=== PATIENT | female | born 1930 | race Caucasian/White ===

== ENCOUNTER 2017-04-16 13:01 | Inpatient (IN) | payer OTHER, MEDICARE ==
[~2017-04-16] VITALS: Ht 167.6 cm; Wt 79.9 kg
[~2017-04-16 13:01] MED LIST: ALPRAZOLAM0.25 M2 PO; ASCORBIC ACID500 M3 PO; ASPIR 8181 M1 PO; ATENOLOL100 MG PO; BACTRIM,SEPT1 TABLET PO; BENICAR40 MG PO; CALCITRIOL0.25 MCG PO; CARVEDILOL3.125 MG PO; CIPRO500 MG PO; CLONIDINE HCL0.2 MG PO; COREG12.5 M1 PO; LASIX20 MG PO; LOPRESSOR100 M1 PO; LOVASTATIN40 MG PO; MULTI-DAY VITA1 EACH PO; NORVASC10 MG PO; ONE-A-DAY ESSE1 EAC1 PO; PLAVIX75 MG PO; ROCALTROL0.25 MCG PO; SENNA S TABLET1 EACH PO; TYLENOL EXTRA500 MG PO; VITAMIN C500 M1 PO
[2017-04-16 15:18] LABS: EOSINOPHIL (%) 1.6 % (0-5); EOSINOPHIL COUNT 0.1 K/uL (0-0.3); HEMATOCRIT 33.3 % (36.0-46.0); IMMATURE GRANULOCYTE (%) 0.6 % (0.0-0.7); INSTRUMENT ABS NEUTROPHIL CT 5.2 K/uL; LYMPHOCYTE COUNT 0.6 K/uL (1.0-2.8); MCH 27.7 PG (29.0-34.0); MCHC 31.5 G/DL (30.0-36.0); MCV 87.9 FL (83-99); MONOCYTE (%) 13.6 % (3-12); MONOCYTE COUNT 0.9 K/uL (0-0.8); NEUTROPHIL (%) 74.6 % (45-76); NEUTROPHIL COUNT 5.2 K/uL (1.8-6.4); RBC DIS.WIDTH-CV 14.2 % (11.8-14.6); RBC DIS.WIDTH-SD 46.1 % (39-53); RED BLOOD COUNT 3.79 M/uL (3.80-5.20); WHITE BLOOD COUNT 6.9 K/uL (4.1-10.2)
[2017-04-16 15:27] LABS: PLATELET COUNT 108 K/uL (156-360)
[2017-04-16 15:29] LABS: CHLORIDE 91 mEq/L (99-109); POTASSIUM 4.3 mEq/L (3.7-5.4); SODIUM 129 mEq/L (136-147)
[2017-04-16 15:32] LABS: GLUCOSE 121 mg/dL (70-99)
[2017-04-16 15:33] LABS: ANION GAP 10 MEQ/L (2-14)
[2017-04-16 15:34] LABS: TOTAL BILIRUBIN 0.4 mg/dL (0.0-1.0)
[2017-04-16 15:35] LABS: ALKALINE PHOSPHATASE 117 IU/L (3-129)
[2017-04-16 15:36] LABS: GFR ESTIMATE (CALCULATED) 14 mL/min/
[2017-04-16 15:37] LABS: UREA NITROGEN (BUN) 70 mg/dL (9-23)
[2017-04-16 15:39] LABS: CREATINE KINASE 40 IU/L (1-294); TOTAL CK 40 IU/L (1-294); TROP-I INTERPRETATION NEGATIVE; TROPONIN-I < 0.01 ng/mL (0.0-0.30)
[2017-04-16 15:40] LABS: CK-MB 0.4 ng/mL (0.0-4.9)
[2017-04-16 15:54] LABS: ADD MIUA? YES; BILIRUBIN NEGATIVE; BLOOD NEGATIVE; COLOR YELLOW ((YELLOW)); GLUCOSE (STRIP) NEGATIVE; KETONES NEGATIVE; LEUKOCYTES SMALL; NITRITE NEGATIVE; PROTEIN (STRIP) 30; SPECIFIC GRAVITY 1.008 (1.000-1.030); UROBILINOGEN 0.2 MG/DL (0.2-1.0)
[2017-04-16 15:56] LABS: BACTERIA NONE SEEN /HPF; EPITHELIAL CELLS RARE /HPF; MUCUS NONE SEEN /LPF; UCUL ADDED? NO
[2017-04-16] MEDS ORDERED: CATAPRES0.1 MG PO (18:30)
[2017-04-16] MEDS ORDERED: CIPRO500 MG PO (18:30)
[2017-04-16] MEDS ORDERED: APRESOLINE25 MG PO (18:33)
[2017-04-16] MEDS ORDERED: PROBIOTIC1 EAC1 PO (18:34)
[2017-04-16] MEDS ORDERED: PROZAC20 MG PO (18:34)
[2017-04-16] MEDS ORDERED: CRANBERRY500 M2 PO (18:34)
[2017-04-16 20:47] VITALS: BP 174/74
[2017-04-16 23:15] LABS: TROP-I INTERPRETATION NEGATIVE; TROPONIN-I 0.01 ng/mL (0.0-0.30)
[2017-04-16 23:49] VITALS: BP 149/66
[2017-04-17] VITALS (8 sets, daily range): BP systolic 140–198; BP diastolic 57–96
[2017-04-17 06:48] LABS: HEMATOCRIT 30.9 % (36.0-46.0); MCH 28.3 PG (29.0-34.0); MCV 88.3 FL (83-99); MEAN PLAT.VOLUME 10.4 uM^3 (9.5-12.4); PLATELET COUNT 107 K/uL (156-360); RBC DIS.WIDTH-CV 14.3 % (11.8-14.6); RBC DIS.WIDTH-SD 46.5 % (39-53); WHITE BLOOD COUNT 5.5 K/uL (4.1-10.2)
[2017-04-17 07:15] LABS: TROP-I INTERPRETATION NEGATIVE; TROPONIN-I 0.02 ng/mL (0.0-0.30)
[2017-04-17 07:16] LABS: ALKALINE PHOSPHATASE 83 IU/L (3-129); ANION GAP 7 MEQ/L (2-14); CHLORIDE 97 MEQ/L (99-109); GFR ESTIMATE (CALCULATED) 17 mL/min/; GLUCOSE 95 mg/dL (70-99); SAMPLE HEMOLYSIS CHECK 0; SAMPLE ICTERIC CHECK 0; SAMPLE LIPEMIA CHECK 0; SODIUM 135 MEQ/L (136-147); TOTAL BILIRUBIN 0.4 MG/DL (0.0-1.0); UREA NITROGEN (BUN) 56 mg/dL (9-23)
[2017-04-18 00:02] VITALS: BP 169/72
[2017-04-18 04:04] VITALS: BP 148/67
[2017-04-18 08:19] VITALS: BP 153/70
[2017-04-18 09:34] LABS: ANION GAP 10 MEQ/L (2-14); CHLORIDE 96 MEQ/L (99-109); GFR ESTIMATE (CALCULATED) 19 mL/min/; GLUCOSE 90 mg/dL (70-99); POTASSIUM 3.9 MEQ/L (3.7-5.4); SAMPLE HEMOLYSIS CHECK 0; SAMPLE ICTERIC CHECK 0; SAMPLE LIPEMIA CHECK 0; SODIUM 135 MEQ/L (136-147); UREA NITROGEN (BUN) 51 mg/dL (9-23)
[2017-04-18 12:55] VITALS: BP 162/77
[2017-04-18 19:28] VITALS: BP 153/71
[2017-04-19] VITALS: BP 155/73
[2017-04-19 03:31] VITALS: BP 154/94
[2017-04-19 08:30] VITALS: BP 203/86
[2017-04-19 08:36] LABS: POINT-OF-CARE METER ID UU13113717
[2017-04-19 08:38] VITALS: BP 138/62
[2017-04-19 08:44] LABS: ANION GAP 8 MEQ/L (2-14); CHLORIDE 104 MEQ/L (99-109); GFR ESTIMATE (CALCULATED) 21 mL/min/; GLUCOSE 102 mg/dL (70-99); POTASSIUM 3.7 MEQ/L (3.7-5.4); SAMPLE HEMOLYSIS CHECK 0; SAMPLE ICTERIC CHECK 0; SAMPLE LIPEMIA CHECK 0; SODIUM 140 MEQ/L (136-147); UREA NITROGEN (BUN) 50 mg/dL (9-23)
== END 2017-04-19 13:22 | disposition home or self-care (01) | DRG 683 ==
LOC: EME 13:01 → 5SOUTH 19:16 → EDOF 19:16 → ENRESERV 19:19 → 5SOUTH 20:23
PROVIDERS: Emergency Medicine; Internal Medicine
DX: N17.9 Acute kidney failure, unspecified (principal); N18.4 Chronic kidney disease, stage 4 (severe); E86.0 Dehydration; E87.1 Hypo-osmolality and hyponatremia; I15.1 Hypertension secondary to other renal disorders; I25.10 Atherosclerotic heart disease of native coronary artery without angina pectoris; Z95.5 Presence of coronary angioplasty implant and graft; Z96.653 Presence of artificial knee joint, bilateral; R41.0 Disorientation, unspecified; I35.0 Nonrheumatic aortic (valve) stenosis; N30.00 Acute cystitis without hematuria; I25.2 Old myocardial infarction; K21.9 Gastro-esophageal reflux disease without esophagitis; Z95.2 Presence of prosthetic heart valve; E78.5 Hyperlipidemia, unspecified
CPT/HCPCS: 71010; 78582; 80048; 80053; 81003; 82550; 82553; 82607; 82728; 82948; 83880; 83930; 83935; 84300; 84484; 85025; 85027; 85379; 93005; 93306; 93970; 94799; 99281; 99284; A9540; A9567; J1644; J7030

== ENCOUNTER 2017-04-23 13:30 | Emergency (ER) | payer OTHER, MEDICARE ==
[~2017-04-23] VITALS: Ht 167.6 cm; Wt 80.6 kg
[~2017-04-23 13:30] MED LIST changes: +APRESOLINE25 MG PO; +CATAPRES0.1 MG PO; +CRANBERRY500 M2 PO; +PROBIOTIC1 EAC1 PO; +PROZAC20 MG PO
[2017-04-23 14:59] LABS: EOSINOPHIL (%) 0.7 % (0-5); EOSINOPHIL COUNT 0.1 K/uL (0-0.3); HEMATOCRIT 34.4 % (36.0-46.0); IMMATURE GRANULOCYTE (%) 0.7 % (0.0-0.7); IMMATURE GRANULOCYTE COUNT 0.1 K/uL; INSTRUMENT ABS NEUTROPHIL CT 6.7 K/uL; LYMPHOCYTE COUNT 0.8 K/uL (1.0-2.8); MCH 27.5 PG (29.0-34.0); MCHC 31.7 G/DL (30.0-36.0); MCV 86.9 FL (83-99); MEAN PLAT.VOLUME 9.9 uM^3 (9.5-12.4); MONOCYTE (%) 6.8 % (3-12); MONOCYTE COUNT 0.6 K/uL (0-0.8); NEUTROPHIL (%) 82.1 % (45-76); NEUTROPHIL COUNT 6.7 K/uL (1.8-6.4); RBC DIS.WIDTH-CV 14.2 % (11.8-14.6); RBC DIS.WIDTH-SD 45.7 % (39-53); RED BLOOD COUNT 3.96 M/uL (3.80-5.20); WHITE BLOOD COUNT 8.1 K/uL (4.1-10.2)
[2017-04-23 15:06] LABS: ADD MIUA? YES; BILIRUBIN NEGATIVE; BLOOD NEGATIVE; COLOR YELLOW ((YELLOW)); GLUCOSE (STRIP) NEGATIVE; KETONES NEGATIVE; LEUKOCYTES SMALL; NITRITE NEGATIVE; PROTEIN (STRIP) 30; SPECIFIC GRAVITY 1.013 (1.000-1.030); UROBILINOGEN 0.2 MG/DL (0.2-1.0)
[2017-04-23 15:06] LABS: CHLORIDE 102 mEq/L (99-109); POTASSIUM 4.5 mEq/L (3.7-5.4); SODIUM 141 mEq/L (136-147)
[2017-04-23 15:07] LABS: GLUCOSE 101 mg/dL (70-99)
[2017-04-23 15:08] LABS: BACTERIA RARE /HPF; EPITHELIAL CELLS RARE /HPF; MUCUS NONE SEEN /LPF; RED BLOOD CELLS 0-5 /HPF (0-5)
[2017-04-23 15:09] LABS: ANION GAP 12 MEQ/L (2-14)
[2017-04-23 15:11] LABS: GFR ESTIMATE (CALCULATED) 24 mL/min/
[2017-04-23 15:12] LABS: UREA NITROGEN (BUN) 38 mg/dL (9-23)
[2017-04-23 15:13] LABS: PLATELET COUNT 266 K/uL (156-360)
[2017-04-23 16:59] VITALS: BP 162/61
== END 2017-04-23 17:00 | disposition home or self-care (01) ==
LOC: EME 13:30
PROVIDERS: Emergency Medicine
DX: E86.0 Dehydration (principal); I12.9 Hypertensive chronic kidney disease with stage 1 through stage 4 chronic kidney disease, or unspecified chronic kidney disease; N18.9 Chronic kidney disease, unspecified; E78.5 Hyperlipidemia, unspecified; I25.2 Old myocardial infarction; F41.9 Anxiety disorder, unspecified; Z85.3 Personal history of malignant neoplasm of breast; Z95.2 Presence of prosthetic heart valve; Z96.653 Presence of artificial knee joint, bilateral
CPT/HCPCS: 71020; 80048; 81003; 83605; 85025; 87040; 87086; 99281; 99284; J7040

== ENCOUNTER 2017-07-18 21:09 | Inpatient (IN) | payer OTHER, MEDICARE ==
[~2017-07-18] VITALS: Ht 167.6 cm; Wt 79.0 kg
[~2017-07-18 21:09] MED LIST changes: +ELIQUIS2.5 MG PO
[2017-07-18 21:55] LABS: MCH 27.9 PG (29.0-34.0); MCHC 32.9 G/DL (30.0-36.0); MCV 84.6 FL (83-99); MEAN PLAT.VOLUME 9.2 uM^3 (9.5-12.4); PLATELET COUNT 273 K/uL (156-360); RBC DIS.WIDTH-SD 40.2 % (39-53); RED BLOOD COUNT 4.02 M/uL (3.80-5.20); WHITE BLOOD COUNT 13.6 K/uL (4.1-10.2)
[2017-07-18 22:02] LABS: INTER. NORMALIZED RATIO 1.2; PROTHROMBIN TIME 13.5 SEC (10.2-12.9)
[2017-07-18 22:04] LABS: PTT 31.2 SEC (25-37)
[2017-07-18 22:08] LABS: CHLORIDE 96 mEq/L (99-109); POTASSIUM 3.9 mEq/L (3.7-5.4); SODIUM 130 mEq/L (136-147)
[2017-07-18 22:09] LABS: GLUCOSE 122 mg/dL (70-99)
[2017-07-18 22:11] LABS: ANION GAP 11 MEQ/L (2-14)
[2017-07-18 22:13] LABS: GFR ESTIMATE (CALCULATED) 25 mL/min/
[2017-07-18 22:14] LABS: TROP-I INTERPRETATION INDETERMINATE; UREA NITROGEN (BUN) 36 mg/dL (9-23)
[2017-07-18] MEDS ORDERED: ATIVAN0.5 MG PO (22:52)
[2017-07-18 23:26] LABS: BASE EXCESS -0.3 mEq/L (-3 to +3); CARBOXY HGB 1.1 % (0-5); COMMENTS - BLOOD GASES C+A+; DEVICE NIV; FI02 40 %; METHEMOGLOBIN 1.1 % (0-1.5); MODE SPONT; PCO2 37 mm Hg (35-45); PEEP 5 CM/H20; PO2 132 mm Hg (80-100); PRES. SUPPORT 10 CM/H2O; SITE RR; TOTAL RESP RATE 31 resp/min; pH 7.42 (7.35-7.45)
[2017-07-19] VITALS (20 sets, daily range): BP systolic 90–161; BP diastolic 54–93
[2017-07-19 06:50] LABS: METH RESISTANT S AUREUS PCR NEGATIVE (NEGATIVE)
[2017-07-19 06:53] LABS: PROBE CHECK PASS; SPECIMEN PROCESSING CONTROL PASS
[2017-07-19 23:37] LABS: INTER. NORMALIZED RATIO 1.2
[2017-07-19 23:40] LABS: PTT 65.3 SEC (25-37)
[2017-07-19 23:42] LABS: CHLORIDE 96 mEq/L (99-109); POTASSIUM 4.3 mEq/L (3.7-5.4); SODIUM 131 mEq/L (136-147)
[2017-07-19 23:43] LABS: GLUCOSE 111 mg/dL (70-99)
[2017-07-19 23:45] LABS: ANION GAP 15 MEQ/L (2-14)
[2017-07-19 23:47] LABS: GFR ESTIMATE (CALCULATED) 17 mL/min/
[2017-07-19 23:48] LABS: UREA NITROGEN (BUN) 51 mg/dL (9-23)
[2017-07-19 23:51] LABS: TROP-I INTERPRETATION INDETERMINATE
[2017-07-20] VITALS (24 sets, daily range): BP systolic 100–156; BP diastolic 65–98
[2017-07-20 05:27] LABS: HEMATOCRIT 32.7 % (36.0-46.0); MCH 28.3 PG (29.0-34.0); MCHC 33.3 G/DL (30.0-36.0); MCV 84.9 FL (83-99); MEAN PLAT.VOLUME 9.6 uM^3 (9.5-12.4); PLATELET COUNT 287 K/uL (156-360); RBC DIS.WIDTH-CV 13.6 % (11.8-14.6); RBC DIS.WIDTH-SD 42.4 % (39-53); RED BLOOD COUNT 3.85 M/uL (3.80-5.20); WHITE BLOOD COUNT 18.5 K/uL (4.1-10.2)
[2017-07-20 06:23] LABS: ANION GAP 16 MEQ/L (2-14); CHLORIDE 95 MEQ/L (99-109); GFR ESTIMATE (CALCULATED) 17 mL/min/; GLUCOSE 105 mg/dL (70-99); POTASSIUM 4.2 MEQ/L (3.7-5.4); SAMPLE HEMOLYSIS CHECK 0; SAMPLE ICTERIC CHECK 0; SAMPLE LIPEMIA CHECK 0; SODIUM 133 MEQ/L (136-147); UREA NITROGEN (BUN) 55 mg/dL (9-23)
[2017-07-20 17:47] LABS: INTER. NORMALIZED RATIO 1.2; PROTHROMBIN TIME 13.6 SEC (10.2-12.9)
[2017-07-20 18:28] LABS: ADD MIUA? YES; BILIRUBIN NEGATIVE; BLOOD NEGATIVE; COLOR YELLOW ((YELLOW)); GLUCOSE (STRIP) NEGATIVE; KETONES NEGATIVE; LEUKOCYTES SMALL; NITRITE NEGATIVE; PROTEIN (STRIP) NEGATIVE; SPECIFIC GRAVITY 1.009 (1.000-1.030); UROBILINOGEN 0.2 MG/DL (0.2-1.0)
[2017-07-20 18:36] LABS: BACTERIA RARE /HPF; EPITHELIAL CELLS RARE /HPF; HYALINE CASTS 0-5 /LPF; MUCUS TRACE /LPF; RED BLOOD CELLS 0-5 /HPF (0-5); UCUL ADDED? YES; UNCLASSIFIED CASTS 0-5 /LPF; UNCLASSIFIED CRYSTALS 2+ /HPF
[2017-07-21] VITALS (24 sets, daily range): BP systolic 80–150; BP diastolic 55–96
[2017-07-21 07:51] LABS: ANION GAP 15 MEQ/L (2-14); CHLORIDE 94 MEQ/L (99-109); GFR ESTIMATE (CALCULATED) 17 mL/min/; GLUCOSE 79 mg/dL (70-99); SAMPLE HEMOLYSIS CHECK 1; SAMPLE ICTERIC CHECK 0; SAMPLE LIPEMIA CHECK 0; SODIUM 132 MEQ/L (136-147); UREA NITROGEN (BUN) 61 mg/dL (9-23)
[2017-07-21 08:16] LABS: BASOPHIL COUNT 0.1 K/uL (0-0.1); EOSINOPHIL (%) 0 % (0-5); IMMATURE GRANULOCYTE (%) 1.3 % (0.0-0.7); IMMATURE GRANULOCYTE COUNT 0.3 K/uL; INSTRUMENT ABS NEUTROPHIL CT 18.4 K/uL; LYMPHOCYTE COUNT 0.5 K/uL (1.0-2.8); MCH 29.2 PG (29.0-34.0); MCHC 34.2 G/DL (30.0-36.0); MCV 85.4 FL (83-99); MEAN PLAT.VOLUME 10.5 uM^3 (9.5-12.4); MONOCYTE (%) 5.7 % (3-12); MONOCYTE COUNT 1.2 K/uL (0-0.8); NEUTROPHIL (%) 90.5 % (45-76); NEUTROPHIL COUNT 18.4 K/uL (1.8-6.4); PLATELET COUNT 296 K/uL (156-360); RBC DIS.WIDTH-CV 13.7 % (11.8-14.6); RBC DIS.WIDTH-SD 43.1 % (39-53); RED BLOOD COUNT 3.63 M/uL (3.80-5.20); WHITE BLOOD COUNT 20.3 K/uL (4.1-10.2)
[2017-07-21 08:18] LABS: MAGNESIUM 2.2 mg/dl (1.3-2.7)
[2017-07-22] VITALS (23 sets, daily range): BP systolic 0–154; BP diastolic 0–88
[2017-07-22 05:27] LABS: BASE EXCESS 1.7 mEq/L (-3 to +3); BICARBONATE 25.7 mEq/L (22-26); CARBOXY HGB 1.2 % (0-5); METHEMOGLOBIN 2.4 % (0-1.5); PCO2 37 mm Hg (35-45); PO2 133 mm Hg (80-100); pH 7.45 (7.35-7.45)
[2017-07-22 05:28] LABS: COMMENTS - BLOOD GASES C+; DEVICE VENT; FI02 60 %; MECHANICAL RATE 18 resp/min; MODE A/C; PEEP 10 CM/H20; SITE RR; TIDAL VOLUME 450 ML; TOTAL RESP RATE 18 resp/min
[2017-07-22 06:17] LABS: EOSINOPHIL (%) 0.6 % (0-5); EOSINOPHIL COUNT 0.1 K/uL (0-0.3); HEMATOCRIT 29.2 % (36.0-46.0); IMMATURE GRANULOCYTE (%) 1.3 % (0.0-0.7); IMMATURE GRANULOCYTE COUNT 0.2 K/uL; INSTRUMENT ABS NEUTROPHIL CT 12.8 K/uL; LYMPHOCYTE COUNT 0.7 K/uL (1.0-2.8); MCHC 31.8 G/DL (30.0-36.0); MCV 84.6 FL (83-99); MEAN PLAT.VOLUME 9.9 uM^3 (9.5-12.4); MONOCYTE (%) 6.2 % (3-12); MONOCYTE COUNT 0.9 K/uL (0-0.8); NEUTROPHIL (%) 86.8 % (45-76); NEUTROPHIL COUNT 12.8 K/uL (1.8-6.4); PLATELET COUNT 294 K/uL (156-360); RBC DIS.WIDTH-CV 13.5 % (11.8-14.6); RBC DIS.WIDTH-SD 41.8 % (39-53); RED BLOOD COUNT 3.45 M/uL (3.80-5.20); WHITE BLOOD COUNT 14.7 K/uL (4.1-10.2)
[2017-07-22 06:50] LABS: ANION GAP 14 MEQ/L (2-14); CHLORIDE 95 MEQ/L (99-109); GFR ESTIMATE (CALCULATED) 19 mL/min/; GLUCOSE 94 mg/dL (70-99); MAGNESIUM 2.1 mg/dl (1.3-2.7); POTASSIUM 3.5 MEQ/L (3.7-5.4); SAMPLE HEMOLYSIS CHECK 0; SAMPLE ICTERIC CHECK 0; SAMPLE LIPEMIA CHECK 0; SODIUM 133 MEQ/L (136-147); UREA NITROGEN (BUN) 64 mg/dL (9-23)
[2017-07-22 06:51] LABS: VANCOMYCIN, TROUGH 19.5 MCG/ML (10-20)
[2017-07-22 07:04] LABS: URIC ACID 7.5 mg/dL (3.1-9.2)
[2017-07-22 13:40] LABS: INTER. NORMALIZED RATIO 1.1
[2017-07-22 13:42] LABS: PTT 64.7 SEC (25-37)
[2017-07-23] VITALS (24 sets, daily range): BP systolic 116–159; BP diastolic 53–80
[2017-07-23 05:25] LABS: EOSINOPHIL (%) 1.5 % (0-5); EOSINOPHIL COUNT 0.2 K/uL (0-0.3); HEMATOCRIT 27.2 % (36.0-46.0); IMMATURE GRANULOCYTE COUNT 0.1 K/uL; LYMPHOCYTE COUNT 0.7 K/uL (1.0-2.8); MCHC 31.3 G/DL (30.0-36.0); MCV 86.3 FL (83-99); MEAN PLAT.VOLUME 9.5 uM^3 (9.5-12.4); MONOCYTE (%) 6.1 % (3-12); MONOCYTE COUNT 0.7 K/uL (0-0.8); PLATELET COUNT 295 K/uL (156-360); RBC DIS.WIDTH-CV 13.8 % (11.8-14.6); RBC DIS.WIDTH-SD 43.4 % (39-53); RED BLOOD COUNT 3.15 M/uL (3.80-5.20); WHITE BLOOD COUNT 11.7 K/uL (4.1-10.2)
[2017-07-23 06:00] LABS: ANION GAP 11 MEQ/L (2-14); CHLORIDE 101 MEQ/L (99-109); GFR ESTIMATE (CALCULATED) 27 mL/min/; GLUCOSE 89 mg/dL (70-99); MAGNESIUM 2.1 mg/dl (1.3-2.7); POTASSIUM 3.7 MEQ/L (3.7-5.4); SAMPLE HEMOLYSIS CHECK 1; SAMPLE ICTERIC CHECK 0; SAMPLE LIPEMIA CHECK 0; SODIUM 139 MEQ/L (136-147); UREA NITROGEN (BUN) 52 mg/dL (9-23)
[2017-07-23 06:12] LABS: BASE EXCESS 3.8 mEq/L (-3 to +3); BICARBONATE 29.1 mEq/L (22-26); CARBOXY HGB 1.1 % (0-5); COMMENTS - BLOOD GASES C+A+; METHEMOGLOBIN 1.3 % (0-1.5); PCO2 47 mm Hg (35-45); PO2 95 mm Hg (80-100); SITE RR
[2017-07-23 06:13] LABS: DEVICE VENTILATOR; FI02 50 %; MODE SPONT; PEEP 10 CM/H20; PRES. SUPPORT 15 CM/H2O; TOTAL RESP RATE 16 resp/min
[2017-07-24] VITALS (24 sets, daily range): BP systolic 89–156; BP diastolic 55–93
[2017-07-24 05:19] LABS: EOSINOPHIL (%) 1.4 % (0-5); EOSINOPHIL COUNT 0.2 K/uL (0-0.3); IMMATURE GRANULOCYTE (%) 0.9 % (0.0-0.7); IMMATURE GRANULOCYTE COUNT 0.1 K/uL; LYMPHOCYTE COUNT 0.8 K/uL (1.0-2.8); MCH 27.5 PG (29.0-34.0); MCHC 31.5 G/DL (30.0-36.0); MCV 87.4 FL (83-99); MEAN PLAT.VOLUME 9.7 uM^3 (9.5-12.4); MONOCYTE (%) 7.6 % (3-12); MONOCYTE COUNT 0.8 K/uL (0-0.8); NEUTROPHIL (%) 82.6 % (45-76); PLATELET COUNT 294 K/uL (156-360); RBC DIS.WIDTH-CV 13.8 % (11.8-14.6); RBC DIS.WIDTH-SD 43.8 % (39-53); RED BLOOD COUNT 3.09 M/uL (3.80-5.20); WHITE BLOOD COUNT 10.9 K/uL (4.1-10.2)
[2017-07-24 05:58] LABS: ANION GAP 13 MEQ/L (2-14); CHLORIDE 104 MEQ/L (99-109); GFR ESTIMATE (CALCULATED) 30 mL/min/; GLUCOSE 84 mg/dL (70-99); MAGNESIUM 1.9 mg/dl (1.3-2.7); POTASSIUM 3.3 MEQ/L (3.7-5.4); SAMPLE HEMOLYSIS CHECK 0; SAMPLE ICTERIC CHECK 0; SAMPLE LIPEMIA CHECK 0; SODIUM 143 MEQ/L (136-147); UREA NITROGEN (BUN) 47 mg/dL (9-23)
[2017-07-25] VITALS (24 sets, daily range): BP systolic 117–164; BP diastolic 52–72
[2017-07-25 04:54] LABS: EOSINOPHIL (%) 1.3 % (0-5); EOSINOPHIL COUNT 0.2 K/uL (0-0.3); HEMATOCRIT 28.1 % (36.0-46.0); IMMATURE GRANULOCYTE (%) 1.6 % (0.0-0.7); IMMATURE GRANULOCYTE COUNT 0.2 K/uL; INSTRUMENT ABS NEUTROPHIL CT 9.7 K/uL; LYMPHOCYTE COUNT 0.9 K/uL (1.0-2.8); MCH 27.6 PG (29.0-34.0); MCHC 31.3 G/DL (30.0-36.0); MCV 88.1 FL (83-99); MEAN PLAT.VOLUME 8.9 uM^3 (9.5-12.4); MONOCYTE (%) 8.3 % (3-12); NEUTROPHIL COUNT 9.7 K/uL (1.8-6.4); PLATELET COUNT 283 K/uL (156-360); RBC DIS.WIDTH-CV 13.9 % (11.8-14.6); RBC DIS.WIDTH-SD 45.1 % (39-53); RED BLOOD COUNT 3.19 M/uL (3.80-5.20)
[2017-07-25 05:13] LABS: POTASSIUM 3.3 mEq/L (3.7-5.4); SODIUM 144 mEq/L (136-147)
[2017-07-25 05:14] LABS: MAGNESIUM 1.9 mg/dL (1.3-2.7)
[2017-07-25 05:15] LABS: CHLORIDE 107 mEq/L (99-109); GLUCOSE 100 mg/dL (70-99)
[2017-07-25 05:16] LABS: ANION GAP 11 MEQ/L (2-14)
[2017-07-25 05:19] LABS: GFR ESTIMATE (CALCULATED) 32 mL/min/
[2017-07-25 05:20] LABS: UREA NITROGEN (BUN) 43 mg/dL (9-23)
[2017-07-26] VITALS (24 sets, daily range): BP systolic 0–171; BP diastolic 0–94
[2017-07-26 05:42] LABS: BASE EXCESS 5.3 mEq/L (-3 to +3); CARBOXY HGB 1.1 % (0-5); METHEMOGLOBIN 1.5 % (0-1.5); pH 7.49 (7.35-7.45)
[2017-07-26 05:43] LABS: COMMENTS - BLOOD GASES A+C+; DEVICE VENT; FI02 30 %; MECHANICAL RATE 18 resp/min; MODE AC; PCO2 38 mm Hg (35-45); PEEP 10 CM/H20; PO2 74 mm Hg (80-100); SITE RR; TIDAL VOLUME 450 ML; TOTAL RESP RATE 18 resp/min
[2017-07-26 06:11] LABS: EOSINOPHIL (%) 2.1 % (0-5); EOSINOPHIL COUNT 0.3 K/uL (0-0.3); HEMATOCRIT 26.2 % (36.0-46.0); IMMATURE GRANULOCYTE (%) 3.6 % (0.0-0.7); IMMATURE GRANULOCYTE COUNT 0.4 K/uL; INSTRUMENT ABS NEUTROPHIL CT 8.9 K/uL; LYMPHOCYTE COUNT 1.4 K/uL (1.0-2.8); MCH 28.4 PG (29.0-34.0); MCHC 32.1 G/DL (30.0-36.0); MCV 88.5 FL (83-99); MEAN PLAT.VOLUME 9.4 uM^3 (9.5-12.4); MONOCYTE (%) 8.1 % (3-12); NEUTROPHIL (%) 74.2 % (45-76); NEUTROPHIL COUNT 8.9 K/uL (1.8-6.4); PLATELET COUNT 270 K/uL (156-360); RBC DIS.WIDTH-CV 14.1 % (11.8-14.6); RBC DIS.WIDTH-SD 45.7 % (39-53); RED BLOOD COUNT 2.96 M/uL (3.80-5.20)
[2017-07-26 07:20] LABS: ANION GAP 10 MEQ/L (2-14); CHLORIDE 110 MEQ/L (99-109); GFR ESTIMATE (CALCULATED) 35 mL/min/; GLUCOSE 101 mg/dL (70-99); MAGNESIUM 1.9 mg/dl (1.3-2.7); POTASSIUM 3.6 MEQ/L (3.7-5.4); SAMPLE HEMOLYSIS CHECK 0; SAMPLE ICTERIC CHECK 0; SAMPLE LIPEMIA CHECK 0; SODIUM 146 MEQ/L (136-147); UREA NITROGEN (BUN) 36 mg/dL (9-23)
[2017-07-27] VITALS (21 sets, daily range): BP systolic 134–183; BP diastolic 64–90
[2017-07-27 05:07] LABS: EOSINOPHIL (%) 1.8 % (0-5); EOSINOPHIL COUNT 0.2 K/uL (0-0.3); HEMATOCRIT 26.9 % (36.0-46.0); IMMATURE GRANULOCYTE (%) 3.2 % (0.0-0.7); IMMATURE GRANULOCYTE COUNT 0.4 K/uL; INSTRUMENT ABS NEUTROPHIL CT 9.7 K/uL; LYMPHOCYTE COUNT 1.6 K/uL (1.0-2.8); MCH 27.8 PG (29.0-34.0); MCHC 31.2 G/DL (30.0-36.0); MCV 89.1 FL (83-99); MEAN PLAT.VOLUME 9.7 uM^3 (9.5-12.4); MONOCYTE (%) 7.4 % (3-12); NEUTROPHIL (%) 74.8 % (45-76); NEUTROPHIL COUNT 9.7 K/uL (1.8-6.4); PLATELET COUNT 267 K/uL (156-360); RBC DIS.WIDTH-CV 14.3 % (11.8-14.6); RBC DIS.WIDTH-SD 46.4 % (39-53); RED BLOOD COUNT 3.02 M/uL (3.80-5.20); WHITE BLOOD COUNT 12.9 K/uL (4.1-10.2)
[2017-07-27 06:09] LABS: ANION GAP 9 MEQ/L (2-14); CHLORIDE 111 MEQ/L (99-109); GFR ESTIMATE (CALCULATED) 38 mL/min/; GLUCOSE 91 mg/dL (70-99); IRON 20 MCG/DL (35-150); MAGNESIUM 1.8 mg/dl (1.3-2.7); POTASSIUM 3.5 MEQ/L (3.7-5.4); SAMPLE HEMOLYSIS CHECK 0; SAMPLE ICTERIC CHECK 0; SAMPLE LIPEMIA CHECK 0; SODIUM 147 MEQ/L (136-147); UREA NITROGEN (BUN) 29 mg/dL (9-23)
[2017-07-28] VITALS (24 sets, daily range): BP systolic 111–179; BP diastolic 54–99
[2017-07-28 05:02] LABS: BASE EXCESS 2.6 mEq/L (-3 to +3); BICARBONATE 27.2 mEq/L (22-26); CARBOXY HGB 1.4 % (0-5); COMMENTS - BLOOD GASES C+A+; DEVICE VENTILATOR; FI02 30 %; MECHANICAL RATE 10 resp/min; METHEMOGLOBIN 1.4 % (0-1.5); MODE SIMV; PCO2 41 mm Hg (35-45); PEEP 8 CM/H20; PO2 72 mm Hg (80-100); PRES. SUPPORT 10 CM/H2O; SITE RR; TIDAL VOLUME 600 ML; TOTAL RESP RATE 10 resp/min; pH 7.43 (7.35-7.45)
[2017-07-28 06:11] LABS: INTER. NORMALIZED RATIO 1.2; PROTHROMBIN TIME 13.2 SEC (10.2-12.9)
[2017-07-28 06:17] LABS: ANION GAP 9 MEQ/L (2-14); CHLORIDE 112 MEQ/L (99-109); GFR ESTIMATE (CALCULATED) 38 mL/min/; GLUCOSE 84 mg/dL (70-99); SAMPLE HEMOLYSIS CHECK 0; SAMPLE ICTERIC CHECK 0; SAMPLE LIPEMIA CHECK 0; SODIUM 147 MEQ/L (136-147); UREA NITROGEN (BUN) 26 mg/dL (9-23)
[2017-07-28 06:23] LABS: PTT 32.7 SEC (25-37)
[2017-07-28 11:33] LABS: TYPE OF FLUID PLEURAL
[2017-07-28 12:34] LABS: BODY FLUID LDH 131 IU/L; BODY FLUID PROTEIN < 3.0 G/DL
[2017-07-28 12:44] LABS: BODY FLUID RBC'S 5000 /MM^3 (0-100); BODY FLUID WBC'S 758 /MM^3 (0-500)
[2017-07-28 12:45] LABS: BODY FLUID EOSINOPHILS 5 % (0-25); MONO RAW COUNT 10; MONONUCLEAR WBC'S 10 %; POLY RAW COUNT 85; POLYNUCLEAR WBC'S 85 % (0-25)
[2017-07-29] VITALS (24 sets, daily range): BP systolic 106–176; BP diastolic 56–92
[2017-07-29 05:30] LABS: EOSINOPHIL (%) 1.5 % (0-5); EOSINOPHIL COUNT 0.2 K/uL (0-0.3); HEMATOCRIT 29.8 % (36.0-46.0); IMMATURE GRANULOCYTE (%) 1.2 % (0.0-0.7); IMMATURE GRANULOCYTE COUNT 0.1 K/uL; INSTRUMENT ABS NEUTROPHIL CT 9.6 K/uL; LYMPHOCYTE COUNT 0.7 K/uL (1.0-2.8); MCH 27.9 PG (29.0-34.0); MCHC 30.9 G/DL (30.0-36.0); MCV 90.3 FL (83-99); MEAN PLAT.VOLUME 9.8 uM^3 (9.5-12.4); MONOCYTE (%) 5.9 % (3-12); MONOCYTE COUNT 0.7 K/uL (0-0.8); NEUTROPHIL (%) 84.7 % (45-76); NEUTROPHIL COUNT 9.6 K/uL (1.8-6.4); PLATELET COUNT 245 K/uL (156-360); RBC DIS.WIDTH-CV 14.4 % (11.8-14.6); RBC DIS.WIDTH-SD 47.5 % (39-53); WHITE BLOOD COUNT 11.3 K/uL (4.1-10.2)
[2017-07-29 06:01] LABS: ANION GAP 13 MEQ/L (2-14); CHLORIDE 111 MEQ/L (99-109); GFR ESTIMATE (CALCULATED) 38 mL/min/; GLUCOSE 75 mg/dL (70-99); POTASSIUM 3.9 MEQ/L (3.7-5.4); SAMPLE HEMOLYSIS CHECK 0; SAMPLE ICTERIC CHECK 0; SAMPLE LIPEMIA CHECK 0; SODIUM 147 MEQ/L (136-147); UREA NITROGEN (BUN) 24 mg/dL (9-23)
[2017-07-29 07:19] LABS: BASE EXCESS -1.6 mEq/L (-3 to +3); BICARBONATE 24.3 mEq/L (22-26); CARBOXY HGB 1.2 % (0-5); METHEMOGLOBIN 1.6 % (0-1.5); PCO2 45 mm Hg (35-45); pH 7.34 (7.35-7.45)
[2017-07-29 07:20] LABS: COMMENTS - BLOOD GASES +C; DEVICE NC; O2 FLOW 6 L/MIN; PO2 57 mm Hg (80-100); SITE LR +A; TOTAL RESP RATE 28 resp/min
[2017-07-29 09:26] LABS: C DIFF TOXIN NEGATIVE (NEGATIVE)
[2017-07-29 09:29] LABS: PROBE CHECK PASS; SPECIMEN PROCESSING CONTROL PASS
[2017-07-30] VITALS (20 sets, daily range): BP systolic 127–181; BP diastolic 57–103
[2017-07-30 05:16] LABS: BASOPHIL COUNT 0.1 K/uL (0-0.1); EOSINOPHIL (%) 1.9 % (0-5); EOSINOPHIL COUNT 0.2 K/uL (0-0.3); HEMATOCRIT 31.3 % (36.0-46.0); IMMATURE GRANULOCYTE (%) 0.9 % (0.0-0.7); IMMATURE GRANULOCYTE COUNT 0.1 K/uL; INSTRUMENT ABS NEUTROPHIL CT 7.7 K/uL; LYMPHOCYTE COUNT 0.7 K/uL (1.0-2.8); MCH 27.2 PG (29.0-34.0); MCV 90.5 FL (83-99); MONOCYTE (%) 4.4 % (3-12); MONOCYTE COUNT 0.4 K/uL (0-0.8); NEUTROPHIL (%) 84.9 % (45-76); NEUTROPHIL COUNT 7.7 K/uL (1.8-6.4); PLATELET COUNT 249 K/uL (156-360); RBC DIS.WIDTH-CV 14.4 % (11.8-14.6); RBC DIS.WIDTH-SD 47.1 % (39-53); RED BLOOD COUNT 3.46 M/uL (3.80-5.20)
[2017-07-30 05:50] LABS: ALKALINE PHOSPHATASE 64 IU/L (3-129); ANION GAP 16 MEQ/L (2-14); CHLORIDE 110 MEQ/L (99-109); GFR ESTIMATE (CALCULATED) 38 mL/min/; GLUCOSE 69 mg/dL (70-99); POTASSIUM 3.9 MEQ/L (3.7-5.4); SAMPLE HEMOLYSIS CHECK 0; SAMPLE ICTERIC CHECK 0; SAMPLE LIPEMIA CHECK 0; SODIUM 148 MEQ/L (136-147); TOTAL BILIRUBIN 0.3 MG/DL (0.0-1.0); UREA NITROGEN (BUN) 26 mg/dL (9-23)
[2017-07-31] VITALS (8 sets, daily range): BP systolic 148–193; BP diastolic 82–135
[2017-07-31 04:31] LABS: BASOPHIL COUNT 0.1 K/uL (0-0.1); EOSINOPHIL (%) 1.2 % (0-5); EOSINOPHIL COUNT 0.2 K/uL (0-0.3); HEMATOCRIT 31.5 % (36.0-46.0); IMMATURE GRANULOCYTE (%) 0.8 % (0.0-0.7); IMMATURE GRANULOCYTE COUNT 0.1 K/uL; INSTRUMENT ABS NEUTROPHIL CT 12.2 K/uL; LYMPHOCYTE COUNT 0.8 K/uL (1.0-2.8); MCH 27.5 PG (29.0-34.0); MCHC 30.8 G/DL (30.0-36.0); MCV 89.2 FL (83-99); MEAN PLAT.VOLUME 9.7 uM^3 (9.5-12.4); MONOCYTE (%) 5.6 % (3-12); MONOCYTE COUNT 0.8 K/uL (0-0.8); NEUTROPHIL (%) 86.6 % (45-76); NEUTROPHIL COUNT 12.2 K/uL (1.8-6.4); RBC DIS.WIDTH-CV 14.6 % (11.8-14.6); RBC DIS.WIDTH-SD 46.5 % (39-53); RED BLOOD COUNT 3.53 M/uL (3.80-5.20)
[2017-07-31 04:44] LABS: CHLORIDE 108 mEq/L (99-109); POTASSIUM 3.6 mEq/L (3.7-5.4); SODIUM 148 mEq/L (136-147)
[2017-07-31 04:45] LABS: GLUCOSE 69 mg/dL (70-99)
[2017-07-31 04:47] LABS: ANION GAP 22 MEQ/L (2-14)
[2017-07-31 04:49] LABS: GFR ESTIMATE (CALCULATED) 30 mL/min/
[2017-07-31 04:50] LABS: UREA NITROGEN (BUN) 29 mg/dL (9-23)
[2017-07-31 04:58] LABS: PLATELET COUNT 351 K/uL (156-360)
[2017-08-03 14:33] LABS: RESEND RESULTS RESEND RESULTS
== END 2017-08-01 14:12 | DRG 981 ==
LOC: EME → EDBD 21:09 → EME 21:09 → 4WEST 07-19 02:58 → EDOF 07-19 02:58 → ENRESERV 07-19 03:02 → 4WEST 07-19 04:47 → ENRESERV 07-31 → 4WEST 07-31 13:34 → ENRESERV 07-31 13:39 → 4WEST 07-31 16:08 → 5EAST 07-31 16:54
PROVIDERS: Emergency Medicine; Internal Medicine Critical Care Medicine; Internal Medicine Nephrology; Internal Medicine Pulmonary Disease; Specialist; Surgery
PROC: 5A09358 Assistance with Respiratory Ventilation, Less than 24 Consecutive Hours, Intermittent Positive Airway Pressure (ICD-10-PCS; principal; 2017-07-18)
PROC: 0BH17EZ Insertion of Endotracheal Airway into Trachea, Via Natural or Artificial Opening (ICD-10-PCS; 2017-07-19)
PROC: 5A1955Z Respiratory Ventilation, Greater than 96 Consecutive Hours (ICD-10-PCS; 2017-07-19)
PROC: 3E1F88Z Irrigation of Respiratory Tract using Irrigating Substance, Via Natural or Artificial Opening Endoscopic (ICD-10-PCS; 2017-07-21)
PROC: 0BCJ8ZZ Extirpation of Matter from Left Lower Lung Lobe, Via Natural or Artificial Opening Endoscopic (ICD-10-PCS; 2017-07-21)
PROC: 0BCB8ZZ Extirpation of Matter from Left Lower Lobe Bronchus, Via Natural or Artificial Opening Endoscopic (ICD-10-PCS; 2017-07-24)
PROC: 5A1955Z Respiratory Ventilation, Greater than 96 Consecutive Hours (ICD-10-PCS; 2017-07-24)
PROC: 0BH18EZ Insertion of Endotracheal Airway into Trachea, Via Natural or Artificial Opening Endoscopic (ICD-10-PCS; 2017-07-24)
PROC: 3E1F88Z Irrigation of Respiratory Tract using Irrigating Substance, Via Natural or Artificial Opening Endoscopic (ICD-10-PCS; 2017-07-24)
PROC: 0W9B3ZZ Drainage of Left Pleural Cavity, Percutaneous Approach (ICD-10-PCS; 2017-07-28)
DX: I13.0 Hypertensive heart and chronic kidney disease with heart failure and stage 1 through stage 4 chronic kidney disease, or unspecified chronic kidney disease (principal); I50.33 Acute on chronic diastolic (congestive) heart failure; I21.4 Non-ST elevation (NSTEMI) myocardial infarction; J96.01 Acute respiratory failure with hypoxia; N18.4 Chronic kidney disease, stage 4 (severe); N17.9 Acute kidney failure, unspecified; E87.1 Hypo-osmolality and hyponatremia; J18.9 Pneumonia, unspecified organism; J90 Pleural effusion, not elsewhere classified; I27.20 Pulmonary hypertension, unspecified; I31.3 Pericardial effusion (noninflammatory); N39.0 Urinary tract infection, site not specified; I48.0 Paroxysmal atrial fibrillation; J98.09 Other diseases of bronchus, not elsewhere classified; I07.1 Rheumatic tricuspid insufficiency; I27.81 Cor pulmonale (chronic); J98.11 Atelectasis; I25.10 Atherosclerotic heart disease of native coronary artery without angina pectoris; F03.90 Unspecified dementia, unspecified severity, without behavioral disturbance, psychotic disturbance, mood disturbance, and anxiety; F41.9 Anxiety disorder, unspecified; E78.5 Hyperlipidemia, unspecified; F32.9 Major depressive disorder, single episode, unspecified; I47.1 Supraventricular tachycardia; I73.9 Peripheral vascular disease, unspecified; K21.9 Gastro-esophageal reflux disease without esophagitis; D64.9 Anemia, unspecified; E87.6 Hypokalemia; E83.39 Other disorders of phosphorus metabolism; Z51.5 Encounter for palliative care; Z96.653 Presence of artificial knee joint, bilateral; I25.2 Old myocardial infarction; Z95.2 Presence of prosthetic heart valve; Z95.5 Presence of coronary angioplasty implant and graft; Z85.3 Personal history of malignant neoplasm of breast; Z92.3 Personal history of irradiation; Z23 Encounter for immunization
CPT/HCPCS: 36600; 71010; 71250; 76604; 76942; 80048; 80048 91; 80053; 80069; 80202; 81003; 82570; 82803; 82945; 83540; 83615; 83615 91; 83735; 83880; 83935; 84100; 84145 90; 84155; 84157; 84300; 84466; 84484; 84550; 85025; 85027; 85610; 85730; 87040; 87070; 87075; 87086; 87116; 87205; 87206; 87493; 87641; 88108; 88305; 89051; 90686; 92507 GN; 93005; 93306; 94002; 94003; 94640; 94640 76; 94668; 94760; 94799; 99281; 99285; J0360; J0456; J0696; J0881; J1630; J1650; J1940; J2060; J2250; J2270; J2543; J2704; J3010; J3370; J3475; J3480; J7040; J7050; S0028